=== PATIENT | female | born 1990 | race Caucasian/White ===

== ENCOUNTER 2016-06-18 16:26 | Emergency (ER) | payer MEDICAID, OTHER ==
[~2016-06-18] VITALS: Ht 50.8 cm; Wt 94.5 kg
[2016-06-18 16:30] VITALS: Ht 50.8 cm; Wt 94.5 kg
[2016-06-18] MEDS ORDERED: ONDANSETRON 4 MG INJ IV STA (17:55)
[2016-06-18] MEDS ORDERED: ACETAMINOPHEN 325 MG TAB PO STA (17:55)
[2016-06-18] MEDS ORDERED: SOD CHLORIDE 0.9% 1,000 ML IV STA (17:55)
--- NOTE | 2016-06-18 18:01 | ERD ---
ER Documentation Chief Complaint Date/Time DATE: 06/18/16 TIME: 17:57 Chief Complaint VAG BLEED TODAY, 10WEEKS HPI 26-year-old female presents the emergency department complaining of lower abdominal cramping and spotting 3 days. She states she is approximately 10 weeks . Patient notes associated nausea but denies any vomiting, diarrhea, fever, dysuria or vaginal discharge. Patient notes that this is her second . ROS All systems reviewed and are negative except as per history of present illness. Medications Home Meds Active Scripts Ondansetron (Ondansetron Odt) 4 Mg Tab.rapdis, 4 MG PO Q6H Y for NAUSEA AND/OR VOMITING for 10 Days, #30 TAB Prov:YESENIA FERNANDEZ PA-C 06/18/16 Acetaminophen* (Tylenol*) 325 Mg Tablet, 2 TAB PO Q6 Y for PAIN AND OR ELEVATED TEMP, #20 TAB Prov:YESENIA FERNANDEZ PA-C 06/18/16 Discontinued Scripts Acetaminophen* (Tylenol*) 325 Mg Tablet, 2 TAB PO Q6 Y for PAIN AND OR ELEVATED TEMP, #20 TAB Prov:YESENIA FERNANDEZ PA-C 06/18/16 Ondansetron (Ondansetron Odt) 4 Mg Tab.rapdis, 4 MG PO Q6H Y for NAUSEA AND/OR VOMITING, #30 TAB Prov:YESENIA FERNANDEZ PA-C 06/18/16 PMhx/Soc Medical and Surgical Hx: pt denies Medical Hx, pt denies Surgical Hx Hx Alcohol Use: No Hx Substance Use: No Hx Tobacco Use: No Smoking Status: Never smoker Physical Exam Vitals Vital Signs Date Time Temp Pulse Resp B/P Pulse Ox O2 Delivery O2 Flow Rate FiO2 06/18/16 21:24 82 16 138/65 98 Room Air 06/18/16 16:30 99.2 84 18 155/77 100 Physical Exam Const: Well-developed, well-nourished, no acute distress Head: Atraumatic Eyes: Normal Conjunctiva ENT: Normal External Ears, Nose and Mouth. Neck: Full range of motion..~ No meningismus. Resp: Clear to auscultation bilaterally Cardio: Regular rate and rhythm, no murmurs Abd: Soft, non tender, non distended. Normal bowel sounds Skin: No petechiae or rashes Back: No midline or flank tenderness Ext: No cyanosis, or edema Neur: Awake and alert Psych: Normal Mood and Affect Result Diagram: 06/18/16193406/18/161934 Results 24 hrs Laboratory Tests Test 06/18/16 18:51 06/18/16 19:35 Urine Color LT. YELLOW Urine Clarity CLEAR Urine pH 6.5 Urine Specific [place] 1.010 Urine Ketones NEGATIVE Urine Nitrite NEGATIVE Urine Bilirubin NEGATIVE Urine Urobilinogen 0.2 E.U./dL Urine Leukocyte Esterase NEGATIVE Urine Microscopic RBC 5-10/HPF Urine Microscopic WBC 0-2/HPF Urine Squamous Epithelial Cells MODERATE Urine Bacteria FEW Urine Hemoglobin 1+ Urine Glucose NEGATIVE% Urine Total Protein NEGATIVE White Blood Count 8.310^3/ul Red Blood Count 4.5810^6/ul Hemoglobin 13.7g/dl Hematocrit 40.4% Mean Corpuscular Volume 88.2fl Mean Corpuscular Hemoglobin 29.9pg Mean Corpuscular Hemoglobin Concent 33.9g/dl Red Cell Distribution Width 12.9% Platelet Count 88647^3/UL Mean Platelet Volume 9.9fl Neutrophils % 64.3% Lymphocytes % 27.5% Monocytes % 7.3% Eosinophils % 0.6% Basophils % 0.1% Nucleated Red Blood Cells % 0.0/100WBC Neutrophils # 5.310^3/ul Lymphocytes # 2.310^3/ul Monocytes # 0.610^3/ul Eosinophils # 0.110^3/ul Basophils # 0.010^3/ul Nucleated Red Blood Cells # 0.010^3/ul Sodium Level 135mmol/L Potassium Level 3.5mmol/L Chloride Level 100mmol/L Carbon Dioxide Level 25mmol/L Anion Gap 14 Blood Urea Nitrogen 9mg/dl Creatinine 0.58mg/dl Glucose Level 81mg/dl Calcium Level 9.4mg/dl Total Bilirubin 0.3mg/dl Direct Bilirubin 0.00mg/dl Indirect Bilirubin 0.3mg/dl Aspartate Amino Transf (AST/SGOT) 19IU/L Alanine Aminotransferase (ALT/SGPT) 21IU/L Alkaline Phosphatase 81IU/L Total Protein 8.0g/dl Albumin 4.2g/dl Globulin 3.80g/dl Albumin/Globulin Ratio 1.10 Beta HCG, Quantitative 984515.0mIU/ml Current Medications Medications (Trade) Dose Ordered Sig/[place] Route PRN Reason Start Time Stop Time Status Last Admin Dose Admin Sodium Chloride (NS) 1,000 ml @ 1,000 mls/hr Q1H STAT IV 06/18/16 17:55 06/18/16 18:54 DC 06/18/16 19:43 Acetaminophen (Tylenol Tab) 650 mg ONCE STAT PO 06/18/16 17:55 06/18/16 17:57 DC 06/18/16 19:45 Ondansetron HCl (Zofran Inj) 4 mg ONCE STAT IV 06/18/16 17:55 06/18/16 17:57 DC Procedures/MDM PROCEDURE: US OB. CLINICAL INDICATION: Vaginal bleeding in a female. TECHNIQUE: Transabdominal and transvaginal views of the pelvis are available for review. COMPARISON: No prior studies are available for comparison. FINDINGS: The uterus is identified and contains a gestational sac with this single viable fetus. The placenta is identified. There is a posterior grade 0 placenta. There is no evidence of placenta previa. No subchorionic hemorrhage is identified in there is no evidence of abruptio placenta. Amniotic fluid volume is normal. The gestational sac measured 5.4 x 3.7 x 5.2 cm. This calculates out to a mean sac diameter of 4.8 cm. AUA is 10 weeks 6 days. There is a normal-appearing yolk sac. [place]-rump length: 3.7 cm equals 10 weeks 4 days. heart rate: 166 beats per minute. Nuchal translucency: Not evaluated. Ultrasound estimated gestational age: 10 weeks 6 days. No ovarian or adnexal mass lesion is seen. There is no free fluid. IMPRESSION: 1. Single live intrauterine with an estimated gestational age of 10 weeks 6 days. 2. No subchorionic hemorrhage is identified. RPTAT:AAJJ Physician Malgorzata Date Time Electronically viewed and signed by Hector Lopez Physician on 06/18/2016 19:01 JM/ CC: YESENIA FERNANDEZ PA-C Otherwise healthy 26-year-old female who is approximately 10 weeks presents the emergency department complaining of pelvic cramping and spotting 3 days. Patient received a liter bolus of fluids as well as Tylenol and Zofran while in the emergency department. CBC showed no evidence of systemic infection or severe anemia. CMP showed no evidence of electrolyte abnormalities, severe acidosis, alkalosis , renal failure, or liver disease. HCG quantitative measured [id number] Blood type O+ UA showed no evidence of acute infection or hematuria. Ultrasound revealed evidence of a single live intrauterine estimated at 10 weeks gestation. At this time low suspicion for spontaneous , ectopic , ovarian torsion, tubo-ovarian abscess, urinary tract infection, severe anemia, electrolyte imbalance, or severe systemic illness. Patient to continue Tylenol and Zofran at home for symptomatic relief. Follow- up with [facility] specialist. Based on patient's history of present illness and physical examination the decision was made to discharge. The patient was re-evaluated after ED treatment and stabilizing measures, and symptoms have improved. There is no evidence of life threatening injuries or illnesses at this time. On re-examination, patient resting in no distress, stable vital signs, reports feeling better and safe for discharge with outpatient follow up with PMD in 1-2 days. Patient given return precautions. Departure Diagnosis: Primary Impression: Vaginal bleeding in patient at less than 20 weeks gestation Additional Impression: Nausea YESENIA FERNANDEZ PA-C June 18, 2016 18:01
--- NOTE | 2016-06-18 19:02 | RADRPT ---
PROCEDURE: US OB. CLINICAL INDICATION: Vaginal bleeding in a female. TECHNIQUE: Transabdominal and transvaginal views of the pelvis are available for review. COMPARISON: No prior studies are available for comparison. FINDINGS: The uterus is identified and contains a gestational sac with this single viable fetus. The placenta is identified. There is a posterior grade 0 placenta. There is no evidence of placenta previa. No subchorionic hemorrhage is identified in there is no evidence of abruptio placenta. Amniotic fluid volume is normal. The gestational sac measured 5.4 x 3.7 x 5.2 cm. This calculates out to a mean sac diameter of 4.8 cm. AUA is 10 weeks 6 days. There is a normal-appearing yolk sac. [place]-rump length:3.7 cm equals 10 weeks 4 days. heart rate:166 beats per minute. Nuchal translucency:Not evaluated. Ultrasound estimated gestational age:10 weeks 6 days. No ovarian or adnexal mass lesion is seen. There is no free fluid. IMPRESSION: 1. Single live intrauterine with an estimated gestational age of 10 weeks 6 days. 2. No subchorionic hemorrhage is identified. RPTAT:AAJJ Physician Malgorzata Date Time Electronically viewed and signed by Physician Malgorzata on 06/18/2016 19:01 GUSTAVO/
[2016-06-18 19:33] LABS: ADD UMIC YES; URINE BILIRUBIN (Dip) NEGATIVE (NEGATIVE); URINE BLOOD (Dip) 1+ (NEGATIVE); URINE COLOR LT. YELLOW (YELLOW); URINE GLUCOSE (Dip) NEGATIVE (NEGATIVE); URINE KETONES (Dip) NEGATIVE (NEGATIVE); URINE LEUKOCYTE ESTERASE (Dip) NEGATIVE (NEGATIVE); URINE NITRITE (Dip) NEGATIVE (NEGATIVE); URINE TOTAL PROTEIN (Dip) NEGATIVE (NEGATIVE); URINE UROBILINOGEN (Dip) 0.2 E.U./dL (0.1-1.0)
[2016-06-18 19:43] LABS: SQUAMOUS EPITHELIAL CELL,UR MODERATE
[2016-06-18 19:44] LABS: BACTERIA,URINE FEW
[2016-06-18 20:05] LABS: ADD SCAN DIFF NO
[2016-06-18 20:07] LABS: BASOPHILS % 0.1 % (0.0-2.0); EOSINOPHILS # 0.1 10^3/ul (0.0-0.5); EOSINOPHILS % 0.6 % (0.0-7.0); HEMATOCRIT 40.4 % (37.0-47.0); HEMOGLOBIN 13.7 g/dl (12.0-16.0); LYMPHOCYTES # 2.3 10^3/ul (0.8-2.9); LYMPHOCYTES % 27.5 % (15.0-51.0); MEAN CORPUSCULAR HEMOGLOBIN 29.9 pg (29.0-33.0); MEAN CORPUSCULAR HGB CONC 33.9 g/dl (32.0-37.0); MEAN CORPUSCULAR VOLUME 88.2 fl (82.0-101.0); MEAN PLATELET VOLUME 9.9 fl (7.4-10.4); MONOCYTE # 0.6 10^3/ul (0.3-0.9); MONOCYTES % 7.3 % (0.0-11.0); NEUTROPHIL # 5.3 10^3/ul (1.6-7.5); NEUTROPHILS % 64.3 % (39.0-77.0); PLATELET COUNT 272 10^3/UL (140-415); RED BLOOD COUNT 4.58 10^6/ul (4.20-5.40); RED CELL DISTRIBUTION WIDTH 12.9 % (11.5-14.5); WHITE BLOOD COUNT 8.3 10^3/ul (4.8-10.8)
[2016-06-18 20:23] LABS: ALBUMIN 4.2 g/dl (3.3-4.9); POTASSIUM 3.5 mmol/L (3.5-5.1)
[2016-06-18 20:25] LABS: ALBUMIN/GLOBULIN RATIO 1.1; BILIRUBIN,INDIRECT 0.3 mg/dl (0-1.1); BILIRUBIN,TOTAL 0.3 mg/dl (0.2-1.3); CREATININE 0.58 mg/dl (0.44-1.00)
[2016-06-18 20:26] LABS: CALCIUM 9.4 mg/dl (8.4-10.2)
[2016-06-18] MEDS ORDERED: ONDA4TAB14 PO ×2 (21:11→21:14)
[2016-06-18] MEDS ORDERED: ACET325T33 PO ×2 (21:11→21:14)
[2016-06-18 21:24] VITALS: BP 138/65; PULSE 82; RESP 16
== END 2016-06-18 21:27 | disposition home or self-care (01) ==
LOC: FTE 16:26
DX: O20.9 Hemorrhage in early pregnancy, unspecified (principal); O26.891 Other specified pregnancy related conditions, first trimester; R11.0 Nausea; R10.2 Pelvic and perineal pain; Z3A.10 10 weeks gestation of pregnancy
CPT/HCPCS: 36415; 76801; 76817; 80053; 81001; 84702; 85025; 86900; 86901; J7030; Z7502; Z7610; 81003

== ENCOUNTER 2017-09-03 16:59 | Emergency (ER) | END 2017-09-03 19:55 | disposition home or self-care (01) ==